=== PATIENT | male | born 1980 | race Caucasian/White ===

== ENCOUNTER 2021-02-19 21:50 | Emergency (ER) | payer BC ==
[~2021-02-19] VITALS: Ht 175.3 cm; Wt 77.1 kg
[2021-02-19 21:53] VITALS: BP 157/86
--- NOTE | 2021-02-19 22:20 | NUR ---
PATIENT PRESENTS TO ED WITH EPIGASTRIC PAIN. PT STATES ""I HAVE CHEST PAIN." POINTS TO EPIGASTRIC AREA. DURING ASSESSMENT PT INFORMS THIS NURSE THE PAIN IS MOVING TO LEFT CHEST AFTER INITIALLY DENYING ANY RADIATION. PT ALSO INFORMS THIS NURSE HE IS HAVING SOB DURING THE ASSESSMENT THAT IS COMING FROM HIS CHEST OPPOSED TO HIS LUNGS. O2 SAT 98% ON RA. LUNGS CBTA ANTERIOR AND POSTERIOR. DENIES N/V/D; SKIN IS PINK/WARM/DRY; AAOX4 WITH EVEN AND STEADY GAIT; HR EVEN AND REGULAR; PT DENIES ANY FEVER, CP, OR COUGH AT THIS TIME; PATIENT STATES PAIN OF 0/10 AT THIS TIME; VSS; PATIENT POSITIONED FOR COMFORT; HOB ELEVATED; BEDRAILS UP X2; BED DOWN. ER MD MADE AWARE OF PT STATUS.
--- NOTE | 2021-02-19 22:33 | NUR ---
PT SEEN ASSESSED, D/C BY VIPUL VALDEZ.
== END 2021-02-19 22:33 | disposition home or self-care (01) ==
LOC: MED 21:50
DX: R07.89 Other chest pain (principal); F41.9 Anxiety disorder, unspecified; R00.2 Palpitations
CPT/HCPCS: 93005; 99283

== ENCOUNTER 2021-05-01 12:56 | Emergency (ER) | payer BC ==
[~2021-05-01] VITALS: Ht 175.3 cm; Wt 77.1 kg
[2021-05-01 13:44] VITALS: BP 139/87
--- NOTE | 2021-05-01 13:48 | NUR ---
C/O 2/10 RIGHT LEG PAIN X LAST NIGHT
[2021-05-01] MEDS ORDERED: NAPR-54 PO (15:25)
[2021-05-01 15:45] VITALS: BP 139/87
== END 2021-05-01 15:45 | disposition home or self-care (01) ==
LOC: MED 12:56
DX: S80.11XA Contusion of right lower leg, initial encounter (principal); X58.XXXA Exposure to other specified factors, initial encounter; Y93.89 Activity, other specified; Y92.89 Other specified places as the place of occurrence of the external cause; Y99.8 Other external cause status
CPT/HCPCS: 73590; 99283